=== PATIENT | female | born 2000 | race Caucasian/White ===

== ENCOUNTER 2022-11-18 22:21 | Observation (INO) ==
[2022-11-19] LABS: Hematocrit 18 % (35-47); Hemoglobin 5.1 g/dL (12.0-16.0); Red Blood Count 3.01 10^6 /uL (3.70-4.87); White Blood Count 5.3 10^3/uL (3.5-10.8)
[2022-11-19 00:01] LABS: Urine Appearance Clear; Urine Bilirubin Negative (Negative); Urine Blood Negative (Negative); Urine Color Straw; Urine Glucose Negative (Negative); Urine Ketones Negative (Negative); Urine Nitrite Negative (Negative); Urine Protein Negative (Negative); Urine Specific Gravity 1.006 (1.002-1.030); Urine Urobilinogen Negative (Negative)
[2022-11-19 00:14] LABS: INR 1.14 (0.88-1.18)
[2022-11-19 00:32] LABS: Creatine Kinase 69 U/L (10-223)
[2022-11-19 00:36] LABS: ALT 13 U/L (7-52); AST 13 U/L (13-39); Albumin 4.4 g/dL (3.2-5.2); Albumin/Globulin Ratio 2.2 (1-3); Alkaline Phosphatase 34 U/L (35-149); Anion Gap 5 mmol/L (2-11); Blood Urea Nitrogen 12 mg/dL (6-24); C Reactive Protein < 1.00 mg/L (<8.01); CO2 Carbon Dioxide 24 mmol/L (22-32); Calcium 8.9 mg/dL (8.6-10.3); Chloride 109 mmol/L (101-111); Creatinine, Serum 0.49 mg/dL (0.51-0.95); Glucose 95 mg/dL (70-100); LDH 150 U/L (140-271); Potassium 3.8 mmol/L (3.5-5.0); Sodium 138 mmol/L (135-145); Total Protein 6.4 g/dL (6.4-8.9); eGFR CKD-EPI 137.4 (>60)
[2022-11-19 00:40] LABS: HCG Pregnancy < 0.60 mIU/mL
[2022-11-19 01:13] LABS: ABS Basophils 0.1 10^3/ul (0-0.2); ABS Eosinophils 0.1 10^3/ul (0-0.6); ABS Monocytes 0.4 10^3/ul (0-0.8); ABS Neutrophils 2.7 10^3/ul (1.5-7.7); Eosinophil % 1.8 %; Lymphocyte % 38.3 %; Mean Corpuscular HGB Conc 29 g/dL (31-36); Mean Corpuscular Hemoglobin 17 pg (27-31); Mean Corpuscular Volume 59 fL (80-97); Mean Platelet Volume 6.3 fL (7.4-10.4); Nucleated Red Blood Cells % 0.2; Platelet Count 479 10^3/uL (150-450); Red Cell Distribution Width 18 % (10-15)
[2022-11-19 01:14] LABS: Anisocytosis 2+; Microcytosis 2+
[2022-11-19 01:17] LABS: Acanthocytes 1+; Hypochromasia 3+
[2022-11-19 01:29] LABS: Erythrocyte Sed Rate 4 mm/Hr (0-19)
[2022-11-19 02:45] LABS: ABS Basophils 0.1 10^3/ul (0-0.2); ABS Eosinophils 0.1 10^3/ul (0-0.6); ABS Lymphocytes 2.3 10^3/ul (1.0-4.8); ABS Monocytes 0.5 10^3/ul (0-0.8); ABS Neutrophils 2.9 10^3/ul (1.5-7.7); Eosinophil % 1.7 %; Hematocrit 17 % (35-47); Hemoglobin 5.1 g/dL (12.0-16.0); Lymphocyte % 39.4 %; Mean Corpuscular HGB Conc 30 g/dL (31-36); Mean Corpuscular Hemoglobin 18 pg (27-31); Mean Corpuscular Volume 59 fL (80-97); Mean Platelet Volume 6.4 fL (7.4-10.4); Nucleated Red Blood Cells % 0.2; Platelet Count 432 10^3/uL (150-450); Red Blood Count 2.92 10^6 /uL (3.70-4.87); Red Cell Distribution Width 18 % (10-15); White Blood Count 5.8 10^3/uL (3.5-10.8)
[2022-11-19 08:56] LABS: ABS Eosinophils 0.1 10^3/ul (0-0.6); ABS Lymphocytes 1.1 10^3/ul (1.0-4.8); ABS Monocytes 0.3 10^3/ul (0-0.8); ABS Neutrophils 2.2 10^3/ul (1.5-7.7); Eosinophil % 1.8 %; Hematocrit 24 % (35-47); Hemoglobin 7.1 g/dL (12.0-16.0); Lymphocyte % 29.3 %; Mean Corpuscular HGB Conc 30 g/dL (31-36); Mean Corpuscular Hemoglobin 20 pg (27-31); Mean Corpuscular Volume 65 fL (80-97); Mean Platelet Volume 6.3 fL (7.4-10.4); Nucleated Red Blood Cells % 0.1; Platelet Count 392 10^3/uL (150-450); Red Blood Count 3.63 10^6 /uL (3.70-4.87); Red Cell Distribution Width 26 % (10-15); White Blood Count 3.7 10^3/uL (3.5-10.8)
[2022-11-19 09:39] LABS: Total Iron Binding Capacity 476 mcg/dL (250-450); Transferrin 340 mg/dL (203-362)
[2022-11-19 09:40] LABS: % Iron Saturation 4 % (15-55); Iron < 20 ug/dL (50-212); Unsaturated Iron Binding 456 ug/dL
[2022-11-19 09:58] LABS: Ferritin 1.2 ng/mL (11-307)
[2022-11-19] MEDS ORDERED: Iron Sucrose 200 MG in NS 0.9% 100 ml BAG 100 ML IVPB SCH (10:20)
[2022-11-19 10:24] LABS: Corrected Retic Count 0.6 % (0.5-1.5); Hematocrit for Retic CNT 23 % (35-47); Immature Retic Fraction 0.31; RBC Retic Count 3.54 10^6/uL (3.70-4.87)
[2022-11-19 10:50] LABS: Magnesium 2.1 mg/dL (1.9-2.7)
[2022-11-19 14:01] LABS: ABS Basophils 0.1 10^3/ul (0-0.2); ABS Lymphocytes 1.4 10^3/ul (1.0-4.8); ABS Monocytes 0.4 10^3/ul (0-0.8); ABS Neutrophils 3.3 10^3/ul (1.5-7.7); Eosinophil % 0.9 %; Hematocrit 22 % (35-47); Hemoglobin 6.5 g/dL (12.0-16.0); Lymphocyte % 26.4 %; Mean Corpuscular HGB Conc 29 g/dL (31-36); Mean Corpuscular Hemoglobin 19 pg (27-31); Mean Corpuscular Volume 66 fL (80-97); Mean Platelet Volume 6.6 fL (7.4-10.4); Nucleated Red Blood Cells % 0.1; Platelet Count 384 10^3/uL (150-450); Red Blood Count 3.39 10^6 /uL (3.70-4.87); Red Cell Distribution Width 25 % (10-15); White Blood Count 5.2 10^3/uL (3.5-10.8)
[2022-11-19 18:35] LABS: Hematocrit 28 % (35-47); Hemoglobin 8.7 g/dL (12.0-16.0)
[2022-11-20 00:26] LABS: Hematocrit 26 % (35-47); Hemoglobin 7.9 g/dL (12.0-16.0)
[2022-11-20 05:53] LABS: ABS Basophils 0.1 10^3/ul (0-0.2); ABS Eosinophils 0.1 10^3/ul (0-0.6); ABS Monocytes 0.5 10^3/ul (0-0.8); Eosinophil % 1.9 %; Hematocrit 27 % (35-47); Hemoglobin 8.1 g/dL (12.0-16.0); Mean Corpuscular HGB Conc 31 g/dL (31-36); Mean Corpuscular Hemoglobin 21 pg (27-31); Mean Corpuscular Volume 68 fL (80-97); Mean Platelet Volume 6.7 fL (7.4-10.4); Nucleated Red Blood Cells % 0.1; Platelet Count 404 10^3/uL (150-450); Red Blood Count 3.91 10^6 /uL (3.70-4.87); Red Cell Distribution Width 28 % (10-15); White Blood Count 5.6 10^3/uL (3.5-10.8)
[2022-11-20 06:06] LABS: Calcium 8.8 mg/dL (8.6-10.3); Creatinine, Serum 0.53 mg/dL (0.51-0.95); Potassium 4.2 mmol/L (3.5-5.0); eGFR CKD-EPI 134.9 (>60)
[2022-11-20 11:07] VITALS: BP 103/59
[2022-11-22 14:33] LABS: Tissue Transglutaminase IgA Ab <1.2 U/mL
[2022-11-22 23:03] LABS: Immunoglobulin A 161 mg/dL (61 - 356)
[2022-11-26 00:13] LABS: Helicobacter pylori Result Not Detected; Specimen Source STOOL
== END 2022-11-20 13:50 | disposition home or self-care (01) ==
LOC: ED 22:21 → EDHOLD 22:21 → SSU 11-19 15:28
PROVIDERS: ADMIT Internal Medicine; ATTEND Internal Medicine